=== PATIENT | female | born 1955 ===

== ENCOUNTER 2024-04-20 11:20 | Outpatient (CLI) | payer OTHER ==
[2024-04-20 11:53] LABS: HEMATOCRIT 43.1 % (36.0-45.00); HEMOGLOBIN 14.6 g/dL (12.0-15.00); MEAN CELL VOLUME 81.8 fL (80.00-100.00); MEAN CORPUSCULAR HEMOGLOBIN 27.8 pg (27.00-32.0); PLATELET COUNT 364 K/uL (150-450); RED BLOOD COUNT 5.27 M/uL (4.00-6.00); RED CELL DISTRIBUTION WIDTH 14.7 % (11.5-14.5)
[2024-04-20 12:14] LABS: INR 1.04; PARTIAL THROMBOPLASTIN TIME 29.3 SECONDS (22.0-34.0); PROTHROMBIN TIME 11.3 SECONDS (9.0-11.5)
[2024-04-20 12:21] LABS: PH,URINE 5.5 (5.0-8.0); URINE APPEARANCE Clear; URINE BILIRRUBIN Negative (NEGATIVE); URINE BLOOD Negative; URINE COLOR Yellow; URINE EPITHELIAL CELLS 16.6 uL (0.0-38.8); URINE GLUCOSE Negative (NEGATIVE); URINE KETONE Negative (NEGATIVE); URINE LEUKOCYTE Negative; URINE NITRATE Negative; URINE PROTEIN Negative (NEGATIVE); URINE RBC 7.5 uL (0.0-20.8); URINE UROBILINOGEN 0.2 E.U./dl; URINE WBC 2.6 uL (0.0-23.2)
[2024-04-20 12:32] LABS: ALBUMIN 4.1 gm/dL (3.4-5.0); BILIRUBIN TOTAL 0.71 mg/dL (0.3-1.2); CALCIUM 9.5 mg/dL (8.5-10.1); CREATININE SERUM 0.71 mg/dL (0.55-1.02); GFR 82.11; GLOBULINA 4.6 G/DL (2.4-3.5); POTASSIUM 4.07 mEq/L (3.5-5.1); TOTAL PROTEIN 8.7 gm/dL (6.4-8.2)
[2024-04-20 12:33] LABS: URINE CAST 0.58 uL (0.0-1.40)
[2024-04-20 12:36] LABS: COL EPI 109 SECONDS (82-175)
[2024-04-20 13:01] VITALS: BP 120/73
[2024-04-21] MEDS ORDERED: SYNTHROID137 MCG PO ×2 (14:14)
[2024-04-21] MEDS ORDERED: CALTRATE 600 +1 EAC1 PO (14:15)
[2024-04-21] MEDS ORDERED: LISINOPRIL10 MG PO (14:15)
[2024-04-21] MEDS ORDERED: ADVIL200 M1 PO (14:16)
[2024-04-21] MEDS ORDERED: ZOCOR20 MG PO (14:16)
== END 2024-04-20 12:28 | disposition home or self-care (01) ==
LOC: RAD 11:20
PROVIDERS: ATTEND Orthopaedic Surgery
DX: D64.9 Anemia, unspecified (principal); E88.89 Other specified metabolic disorders; D68.8 Other specified coagulation defects; N39.0 Urinary tract infection, site not specified; Z22.322 Carrier or suspected carrier of Methicillin resistant Staphylococcus aureus; E11.9 Type 2 diabetes mellitus without complications; I10 Essential (primary) hypertension; Z76.89 Persons encountering health services in other specified circumstances

== ENCOUNTER 2024-04-20 15:06 | Outpatient (CLI) | payer OTHER ==
[2024-04-21] MEDS ORDERED: SYNTHROID137 MCG PO ×2 (14:14)
[2024-04-21] MEDS ORDERED: CALTRATE 600 +1 EAC1 PO (14:15)
[2024-04-21] MEDS ORDERED: LISINOPRIL10 MG PO (14:15)
[2024-04-21] MEDS ORDERED: ADVIL200 M1 PO (14:16)
[2024-04-21] MEDS ORDERED: ZOCOR20 MG PO (14:16)
== END 2024-04-20 15:19 | disposition home or self-care (01) ==
LOC: RAD 15:06
PROVIDERS: ATTEND Orthopaedic Surgery
DX: S82.851A Displaced trimalleolar fracture of right lower leg, initial encounter for closed fracture (principal)

== ENCOUNTER 2024-04-24 09:40 | Day surgery (SDC) | payer OTHER ==
[2024-04-21 14:24] VITALS: BP 120/73
[~2024-04-24] VITALS: Ht 152.4 cm; Wt 58.5 kg
[~2024-04-24 09:40] MED LIST: ADVIL200 M1 PO; CALTRATE 600 +1 EAC1 PO; LISINOPRIL10 MG PO; SYNTHROID137 MCG PO; ZOCOR20 MG PO
[2024-04-24] MEDS ORDERED: CIPROFLOXACIN IN 5 % DEXTROSE 400 MG/200 ML PIGGYBAG IV ONE (12:00)
[2024-04-24] MEDS ORDERED: BUPIVACAINE HCL/PF 0.25% 30ML VIAL InF ONE (12:00)
[2024-04-24] MEDS ORDERED: ISOPROPYL ALCOHOL 30 ML OUNCE TOP ONE (12:00)
[2024-04-24] MEDS ORDERED: MORPHINE SULFATE 2 MG/ML CARTRIDGE IV ONE ×2 (15:10→16:00)
== END 2024-04-24 18:00 | disposition home or self-care (01) ==
LOC: CIR.AMB 09:40
PROVIDERS: ATTEND Orthopaedic Surgery
DX: S82.871A Displaced pilon fracture of right tibia, initial encounter for closed fracture (principal); Z88.0 Allergy status to penicillin; Z88.2 Allergy status to sulfonamides; Z91.041 Radiographic dye allergy status; I10 Essential (primary) hypertension; E03.8 Other specified hypothyroidism; K75.9 Inflammatory liver disease, unspecified; M19.90 Unspecified osteoarthritis, unspecified site; C50.912 Malignant neoplasm of unspecified site of left female breast
CPT/HCPCS: 27828; L8699

== ENCOUNTER 2024-05-18 14:00 | Outpatient (CLI) | payer OTHER | END 2024-05-18 14:15 | disposition home or self-care (01) | LOC: RAD 14:00 | PROVIDERS: ATTEND Orthopaedic Surgery | DX: S82.871D Displaced pilon fracture of right tibia, subsequent encounter for closed fracture with routine healing (principal); X58.XXXD Exposure to other specified factors, subsequent encounter ==

== ENCOUNTER 2024-07-27 13:25 | Outpatient (CLI) | payer OTHER | END 2024-07-27 13:31 | disposition home or self-care (01) | LOC: RAD 13:25 | PROVIDERS: ATTEND Orthopaedic Surgery | DX: S82.871D Displaced pilon fracture of right tibia, subsequent encounter for closed fracture with routine healing (principal) ==

== ENCOUNTER 2024-09-27 09:50 | Outpatient (CLI) | payer OTHER | END 2024-09-27 09:53 | disposition home or self-care (01) | LOC: RAD 09:50 | PROVIDERS: ATTEND Orthopaedic Surgery | DX: S82.871D Displaced pilon fracture of right tibia, subsequent encounter for closed fracture with routine healing (principal); X58.XXXD Exposure to other specified factors, subsequent encounter ==

== ENCOUNTER 2025-02-20 09:26 | Outpatient (CLI) | payer OTHER | END 2025-02-20 09:30 | disposition home or self-care (01) | LOC: RAD 09:26 | PROVIDERS: ATTEND Obstetrics & Gynecology | DX: Z01.811 Encounter for preprocedural respiratory examination (principal) ==

== ENCOUNTER 2025-02-27 11:00 | Day surgery (SDC) | payer OTHER ==
[2025-02-20 12:25] VITALS: BP 172/87
[~2025-02-27] VITALS: Ht 152.4 cm; Wt 61.2 kg
[2025-02-27] MEDS ORDERED: CHLORHEXIDINE GLUCONATE 120 ML BOTTLE TOP ONE (16:21)
[2025-02-27] MEDS ORDERED: ACETAMINOPHEN 500 MG GEL..CAP PO PRN (19:15)
[2025-02-27] MEDS ORDERED: PROMETHAZINE HCL 50 MG/ML AMPUL IM PRN (20:30)
== END 2025-02-27 21:20 | disposition home or self-care (01) ==
LOC: CIR.AMB 11:00
PROVIDERS: ATTEND Obstetrics & Gynecology
DX: N85.00 Endometrial hyperplasia, unspecified (principal); Z88.2 Allergy status to sulfonamides; Z88.0 Allergy status to penicillin; Z91.041 Radiographic dye allergy status